=== PATIENT | male | born 1995 | race Two or more races ===

== ENCOUNTER 2020-12-30 04:51 | Emergency (ER) | payer SELFPAY ==
[2020-12-30] VITALS (25 sets, daily range): BP systolic 100–119; BP diastolic 52–74; PULSE 59–98; RESP 11–18; TEMP 36.8; O2SAT 97–100
--- NOTE | 2020-12-30 04:55 | ED.DIZZY ---
HPI - Dizziness General Chief Complaint: Dizziness <Filiberto Mendenhall MD - Last Filed: 01/05/21 13:19> Stated Complaint: numbness and weakness x 2-3 hours <Filiberto Mendenhall MD - Last Filed: 01/05/21 13:19> History of Present Illness HPI Narrative: Dizziness for the past 2-3 hours. Associated with rapid heart rate. He also reports feeling like he is not in control of his arms and legs. He is able to move them at will. Per EMS heart rate was initially very eleated. Improved in route. He does admit to drinking 2 beers this evening. He denies any other drug use. <Filiberto Mendenhall MD - Last Filed: 01/05/21 13:19> Related Data Allergies/Adverse Reactions: Allergies Allergy/AdvReac Type Severity Reaction Status Date / Time No Known Allergies Allergy Verified 12/30/20 06:44 <Filiberto Mendenhall MD - Last Filed: 01/05/21 13:19> Review of Systems Review of Systems: All systems reviewed & are unremarkable except as noted in HPI and below <Filiberto Mendenhall MD - Last Filed: 01/05/21 13:19> Constitutional: Constitutional: Reports fatigue, Denies fever(s) and Reports weakness <Filiberto Mendenhall MD - Last Filed: 01/05/21 13:19> Eyes: Eyes: Reports no additional eye complaints <Filiberto Mendenhall MD - Last Filed: 01/05/21 13:19> ENT: Reports dizziness <Filiberto Mendenhall MD - Last Filed: 01/05/21 13:19> Cardiovascular: Cardiovascular: Denies chest pain <Filiberto Mendenhall MD - Last Filed: 01/05/21 13:19> Respiratory: Respiratory: Denies dyspnea <Filiberto Mendenhall MD - Last Filed: 01/05/21 13:19> Gastrointestinal: Gastrointestinal: Reports no additional gastrointestinal complaints <Filiberto Mendenhall MD - Last Filed: 01/05/21 13:19> Genitourinary: Genitourinary: Reports no additional male genitourinary complaints <Filiberto Mendenhall MD - Last Filed: 01/05/21 13:19> Musculoskeletal: Musculoskeletal: Denies back pain <Filiberto Mendenhall MD - Last Filed: 01/05/21 13:19> Neurologic: Denies syncope and Reports weakness <Filiberto Mendenhall MD - Last Filed: 01/05/21 13:19> Psychiatric: Psychiatric: Denies anxiety <Filiberto Mendenhall MD - Last Filed: 01/05/21 13:19> [facility] Social History Social History: Social History (Updated 12/30/20 @ 04:58 by Filiberto Mendenhall MD) Alcohol intake: current Substance use: never <Filiberto Mendenhall MD - Last Filed: 01/05/21 13:19> Exam Const: General: healthy appearing, no acute distress and alert <Filiberto Mendenhall MD - Last Filed: 01/05/21 13:19> Orientation/consciousness: patient oriented x3 <Filiberto Mendenhall MD - Last Filed: 01/05/21 13:19> HENMT: Head: normal to inspection <Filiberto Mendenhall MD - Last Filed: 01/05/21 13:19> Neck: Neck: normal visual inspection and no lymphadenopathy <Filiberto Mendenhall MD - Last Filed: 01/05/21 13:19> Chest: Chest palpation & inspection: no tenderness <Filiberto Mendenhall MD - Last Filed: 01/05/21 13:19> Resp: Effort & Inspection: normal respiratory effort <Filiberto Mendenhall MD - Last Filed: 01/05/21 13:19> Auscultation: clear to auscultation bilaterally, no rales, no rhonchi and no wheezes <Filiberto Mendenhall MD - Last Filed: 01/05/21 13:19> Cardio: Jugular venous distension: no JVD <Filiberto Mendenhall MD - Last Filed: 01/05/21 13:19> Rate: regular rate <Filiberto Mendenhall MD - Last Filed: 01/05/21 13:19> Rhythm: regular rhythm <Filiberto Mendenhall MD - Last Filed: 01/05/21 13:19> Heart sounds: no murmurs <Filiberto Mendenhall MD - Last Filed: 01/05/21 13:19> GI: Inspection: non-distended <Filiberto Mendenhall MD - Last Filed: 01/05/21 13:19> GI Palp: Yes Soft to palpation and No Tenderness to palpation present (GI) <Filiberto Mendenhall MD - Last Filed: 01/05/21 13:19> Skin: General skin exam: normal color <Filiberto Mendenhall MD - Last Filed: 01/05/21 13:19> Neuro: General: patient oriented x3, moves all extremities, no focal motor deficits and CN'
[2020-12-30] MEDS: SODIUM CHLORIDE 0.9% IV 1,000 ML 999 ML IV CONT (05:10)
[2020-12-30 05:21] LABS: Basophils Percent Auto 0.6 % (0.2-1.2); Eosinophils Percent Auto 0.9 % (0-4.4); Hematocrit 41.6 % (42.0-52.0); Hemoglobin 14.8 g/dL (14.0-18.0); Immature Granulocyte Absolute 0.01 K/mm3 (0.00-0.031); Immature Granulocyte Percent A 0.3 % (0-0.5); Lymphocytes Absolute Auto 1.09 K/mm3 (0.9-3.2); Lymphocytes Percent Auto 31.7 % (18.3-44.2); Mean Corpuscular HGB Conc 35.6 g/dl (32-36); Mean Corpuscular Hemoglobin 31.3 pg (26-34); Mean Corpuscular Volume 87.9 fl (80-100); Mean Platelet Volume 10.5 fl (7.4-10.4); Monocytes Absolute Auto 0.3 K/mm3 (0.1-0.6); Monocytes Percent Auto 7.6 % (2.6-8.5); Neutrophils Percent Auto 58.9 % (45.5-73.1); Platelet Count Result 154 k/mm3 (150-375); Red Blood Count 4.73 M/mm3 (4.6-6.20); Red Cell Distribution Width 12.5 % (11.5-14.5); White Blood Count 3.4 K/mm3 (4.5-10.0)
[2020-12-30 05:31] LABS: Potassium 3.7 mmol/L (3.4-5.0)
[2020-12-30 05:37] LABS: Anion Gap 8 mmol/L (8-16); Blood Urea Nitrogen 5 mg/dL (9-20); Carbon Dioxide 29 mmol/L (22-30); Chloride 107 mmol/L (98-107); Estimated CRCL calculation 121 ml/min; Estimated Glomerular Filt Rate > 60; Glucose 95 mg/dL (75-110); Sodium 144 mmol/L (137-145)
[2020-12-30 07:21] LABS: Amphetamine Screen Urine Negative (Negative); Barbiturate Screen Urine Negative (Negative); Benzodiazepines Screen Urine Negative (Negative); Cannabinoid Screen Urine Positive (Negative); Cocaine Screen Urine Negative (Negative); Methadone Screen Urine Negative (Negative); Opiate Screen Urine Negative (Negative); Phencyclidine Screen Urine Negative (Negative)
--- NOTE | 2020-12-30 09:32 | ECG_ITS ---
Measurements Intervals Albert Rate: 87 P: 56 ID: 148 QRS: 60 QRSD: 110 T: 49 QT: 353 QTc: 426 Interpretive Statements SINUS RHYTHM ST ELEVATION IN DIFFUSE LEADS- PROBABLY EARLY REPOLARIZATION BORDERLINE ECG Electronically Signed On 12-30-2020 9:45:02 CDT by Bryan Weller D.O.
== END 2020-12-30 08:08 | disposition home or self-care (01) ==
PROVIDERS: Emergency Provider Emergency Medicine
DX: R42 Dizziness and giddiness (principal); R94.31 Abnormal electrocardiogram [ECG] [EKG]
CPT/HCPCS: 36415; 80048; 80307; 85025; 93005; 96360; 99283; J7030

== ENCOUNTER 2025-03-12 18:28 | Emergency (ER) | payer SELFPAY ==
--- NOTE | ~2025-03-12 | XR_ITS ---
XR hand RT min 3V Ordering provider: Allan St MD History: . lac X CUT HAND WITH GLASS UNABLE TO MOVE 3RD 4TH DIGIT . Comparison: None. FINDINGS: BONES: No acute fracture or dislocation. JOINT SPACES: Normal. SOFT TISSUES: Normal. IMPRESSION: No acute osseous abnormality right hand. Reviewed, dictated and finalized at location A.
--- OUTSIDE RECORDS SUMMARY | 2025-03-12 18:29 | XMS_ITS | Referral Summary ---
Author Organization [facility] Address [address] [place] [id number] Care Team Providers Care Career Development Facilitator Name Role Phone No, Physician Primary Care Provider [phone] Allergies No known active allergies Medications ibuprofen (ADVIL,MOTRIN) 800 mg tablet Take 1 tablet (800 mg total) by mouth 3 (three) times a day. 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 Gender Identity Not on file Sexual Orientation Not on file Last Filed Vital Signs Vital Sign Reading Time Taken Comments Blood Pressure 128/98 05/01/2018 6:12 PM CDT Pulse 90 05/01/2018 6:12 PM CDT Temperature 37.2 C (99 F) 05/01/2018 6:12 PM CDT Respiratory Rate 18 05/01/2018 6:12 PM CDT Oxygen Saturation 100% 05/01/2018 6:12 PM CDT Inhaled Oxygen Concentration - - Weight 90.7 kg (200 lb) 05/01/2018 6:12 PM CDT Height 182.9 cm (6') 05/01/2018 6:12 PM CDT Body Mass Index 27.12 05/01/2018 6:12 PM CDT Plan of Treatment Not on file Care Teams Career Development Facilitator Relationship Specialty Start Date End Date No, Physician PCP - General 04/10/17
--- OUTSIDE RECORDS SUMMARY | 2025-03-12 18:29 | XMS_ITS | Clinical Summary ---
Author Organization [facility] Address [address] [place] [address] Care Team Providers Care Crystalizer Operator Name Role Phone Unavailable Primary Care Provider Unavailabl e Source Comments [facility],non-owned Affiliates and Associated Physician Practices is amultiple site organization consisting of ambulatory clinics and hospital sitesin [place], [place], [place] and [place]. This disclosure is being madepursuant to the Care Everywhere program and may not contain all information available regarding this patient. Last updated 18.[facility] [employer] Allergies No known active allergies Medications * Be aware that medications may not be up to date on this document. Alwaysverify current medications with the patient. doxycycline hyclate (VIBRAMYCIN) 100 MG tabletIndication s:Acne Vulgaris Take 1 tablet by mouth 2 times daily Reasons: Common Acne 60 tablet 2 04/13/2019 Active Active Problems Problem Noted Date Diagnosed Date Acne vulgaris 04/13/2019 Acne scarring 04/13/2019 Social History Tobacco Use Types Packs/Day Years Used Date Smoking Tobacco: Every Day Smokeless Tobacco: Former Sex and Gender Information Value Date Recorded Sex Assigned at Not on file Legal Sex Male 2:18 PM CDT Gender Identity Not on file Sexual Orientation Not on file Plan of Treatment Health Maintenance Due Date Last Done Comments HIV SCREENING 2010 HEPATITIS C SCREENING 05/19/2013 DTAP/TDAP/TD VACCINES (1 - Tdap) 2014 HEPATITIS B VACCINE (1 of 3 - 19+ 3-dose series) 2014 COVID-19 VACCINE (2023-2 5 season) 2024 DEPRESSION SCREENING 09/30/2024 INFLUENZA VACCINE (Season Ended) 2025 ZOSTER VACCINE (1 of 2) 2045 HIB VACCINE Aged Out No longer eligi ble based on patient's age to complete this topic HPV VACCINE Aged Out No longer eligi ble based on patient's age to complete this topic MENINGOCOCCAL (Group B) VACC INE SHARED DECISION-MAKING Aged Out No longer eligibl e based on patient's age to complete this topic MENINGOCOCCAL GROUPS A/C/Y/W VACCINE Aged Out No longer eligible b ased on patient's age to complete this topic PNEUMOCOCCAL VACCINE Aged Out No long er eligible based on patient's age to complete this topic
--- OUTSIDE RECORDS SUMMARY | 2025-03-12 18:29 | XMS_ITS | Clinical Summary ---
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
[2025-03-12 18:33] VITALS: BP 149/85; PULSE 110; RESP 16; TEMP 36.8; O2SAT 100
--- NOTE | 2025-03-12 18:49 | ED_ITS ---
HPI - Wound/Laceration General Chief Complaint: Wound/Laceration Stated Complaint: Laceration to Hand Time Seen by Provider: 03/12/25 18:42 Source: patient Mode of arrival: ambulatory Limitations: no limitations History of Present Illness HPI narrative: This is a 29 year old RHD male that presents to the ER for laceration to the right hand. Reports he was holding a glass and slammed it on a table and it broke. Reports laceration to the palm. He is unable to bend his middle finger. Denies numbness. Related Data Allergies Allergy/AdvReac Type Severity Reaction Status Date / Time No Known Allergies Allergy Verified 12/30/20 06:44 Review of Systems Review of Systems: All systems reviewed & are unremarkable except as noted in HPI and below PMFSH Past Medical History Medical History (Updated 03/12/25 @ 21:07 by Caitlin Guallpa PA-C) No active medical problems Social History Social History (Updated 03/12/25 @ 18:53 by Caitlin Guallpa PA-C) Smoking status: Current every day smoker Tobacco type: e-cigarettes/vaping Alcohol intake: current Substance use: never Exam Narrative: GENERAL: Well-appearing, well-nourished, and in no acute distress. HEAD: Normocephalic, atraumatic. EYES: EOMI EXTREMITIES: Unable to flex the right third finger. Normal sensation. Normal capillary refill. 4cm linear laceration into subcutaneous tissue to the right hand palmar surface just below the 3rd and 4th fingers SKIN: Warm, dry, no rash. NEURO: No focal deficits. Alert and oriented x3. PSYCH: Normal mood and affect Course Course Emergency Course: Patient agrees with plan of care Consultations Consultation #1: Spoke with Dr. Hanley, hand surgery at [facility]. I will suture skin, provide patient with antibiotics, place in splint with fingers slightly flexed. He can follow up next week for further care. Date: 03/12/25 Vital Signs Vital signs: Vital Signs Temperature 98.2 F 03/12/25 18:33 Pulse Rate 110 H 03/12/25 18:33 Respiratory Rate 16 03/12/25 18:33 Blood Pressure 149/85 H 03/12/25 18:33 Pulse Oximetry 100 03/12/25 18:33 Temperature 98.2 F 03/12/25 18:33 Pulse Rate 110 H 03/12/25 18:33 Respiratory Rate 16 03/12/25 18:33 Blood Pressure 149/85 H 03/12/25 18:33 Pulse Oximetry 100 03/12/25 18:33 Procedures Laceration Laceration 1: Date: 03/12/25 Time: 21:17 Site: upper extremity Side (If applicable): right Size (cm): 4 Description: linear Depth: simple, single layer Local Anesthetic: lidocaine 1% and with epi Amount of anesthesia used (mL): 4 Pre-repair: wound explored and irrigated extensively ====== Skin Level ====== Skin layer closed with: nylon Size (cm): 4-0 Number of sutures: 7 Technique: simple, interrupted ====== Subcutaneous Layer ====== ====== Muscle Layer ====== ====== Tendon Layer ====== Orthopedic Splinting/Casting Injury #1: Splinting/Casting Date: 03/12/25 Splinting/Casting Time: 21:18 Side: right Upper Extremity Injury Location: hand Splint: customized in ED OCL: volar Pre-Procedure Neuro Vascular Exam: normal Post-Procedure Neuro Vascular Exam: normal MDM - Wound/Laceration MDM Narrative Medical decision making narrative: Patient presents the emergency department for laceration of the right hand sustained just prior to arrival. Patient's wound was irrigated. He was updated on tetanus vaccination. Patient is not able to flex the 3rd finger. I do not see any obvious tendon injury on exam. He is neurovascularly intact. Spoke with Dr. Hanley, hand surgery at [facility]. I will suture skin, provide patient with antibiotics, place in splint with fingers slightly flexed. He can follow up next week for further care. He was given warnings to return to the ER Differential Diagnosis Differential diagnosis: Likely laceration, abscess and avulsion of skin Critical Care Time Critical Care Time Critical Care Time: No Discharge Plan Discharge Clinical Impression: Laceration Patient Disposition: Home Condition: Stable Instructions: Laceration (ED) Additional Instructions: Return to the emergency department if you experience fever, redness and swelling of your arm, numbness, your arm feels cold, or any other symptoms that are concerning to you Wear splint. Ice and elevate. [id number] pain medication as needed. Prescribed pain medication as needed. Take oral antibiotics as prescribed Follow-up with [facility] hand surgery, call to make an appointment Applying for emergency medicaid: Begin by contacting your state's Medicaid office or the hospital where treatment is sought. Many hospitals can help with the application process during an emergency. You'll need to provide documentation to prove eligibility, such as: * Proof of income (e.g., pay stubs, tax returns). * Proof of residency (e.g., utility bills, lease agreements). * Identification, if available, though undocumented immigrants may not need to provide it. You do not need a Social Security Number (SSN) to apply for Emergency Medicaid. Complete the Emergency Medicaid application, which can often be initiated during or shortly after receiving treatment. Some states allow retroactive applications for emergency care received within a specific timeframe. The Medicaid office will review your application and supporting documents to determine eligibility based on state-specific requirements. Once approved, Emergency Medicaid will cover the costs of eligible emergency treatments received during the qualifying period of time. Hospitals and Medicaid offices are usually well-versed in guiding patients through this process to make sure that medical emergencies do not go untreated due to financial barriers. https://shala.[place].gov https://shala.[place].gov/ Patient Language: Vietnamese Prescriptions: New hydrocodone-acetaminophen 5-325 mg tablet 1 tablet PO Q6H PRN (Reason: pain) Qty: 20 0RF cephalexin 500 mg capsule 500 mg PO Q6H 7 Days Qty: 28 0RF Follow-up/Referrals: PHYSICIAN,CONVEYOR MECHANIC [Primary Care Provider] -
[2025-03-12] MEDS: LIDO 1%/EPINEPHRINE 1:100,000 20 ML VIAL 10 ML INFILTRATE (19:01)
[2025-03-12] MEDS: TETANUS,DIPHTHERIA,AC PERTUSSIS ADULT (0.5 ML) BOOSTRIX IM (20:16)
--- OUTSIDE RECORDS SUMMARY | 2025-03-12 20:18 | XMS_ITS | Clinical Summary ---
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
--- OUTSIDE RECORDS SUMMARY | 2025-03-12 20:18 | XMS_ITS | Referral Summary ---
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
--- OUTSIDE RECORDS SUMMARY | 2025-03-12 20:18 | XMS_ITS | Clinical Summary ---
Author Organization [facility] Address [address] [facility] [place] [address] Care Team Providers Care Counter Help Name Role Phone Unavailable Primary Care Provider Unavailabl e Source Comments [facility],non-owned Affiliates and Associated Physician Practices is amultiple site organization consisting of ambulatory clinics and hospital sitesin [place], [place], [place] and [place]. This disclosure is being madepursuant to the Care Everywhere program and may not contain all information available regarding this patient. Last updated 18.[facility] [employer] Allergies No known active allergies Medications * [...]
[2025-03-12 21:22] VITALS: BP 138/82; PULSE 87; RESP 15; O2SAT 100
== END 2025-03-12 21:24 | disposition home or self-care (01) ==
PROVIDERS: Emergency Provider Physician Assistant
DX: S61.411A Laceration without foreign body of right hand, initial encounter (principal); Z23 Encounter for immunization; F17.290 Nicotine dependence, other tobacco product, uncomplicated; W25.XXXA Contact with sharp glass, initial encounter
CPT/HCPCS: 12002; 73130; 90471; 90715; 99283; J2004

== ENCOUNTER 2025-03-17 01:06 | Day surgery (SDC) | payer SELFPAY ==
[2025-03-17] VITALS (8 sets, daily range): BP systolic 109–143; BP diastolic 66–91; PULSE 53–86; RESP 14–19; TEMP 36.1–37.6; O2SAT 95–99; BMI 27.8
--- OUTSIDE RECORDS SUMMARY | 2025-03-17 01:09 | XMS_ITS | Clinical Summary ---
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
--- OUTSIDE RECORDS SUMMARY | 2025-03-17 01:09 | XMS_ITS | Clinical Summary ---
Author Organization [facility] Address [address] [facility] [place] [address] Care Team Providers Care Associate Biological Sales Name Role Phone Unavailable Primary Care Provider Unavailabl e Source Comments [facility],non-owned Affiliates and Associated Physician Practices is amultiple site organization consisting of ambulatory clinics and hospital sitesin [place], [place], [place] and [place]. This disclosure is being madepursuant to the Care Everywhere program and may not contain all information available regarding this patient. Last updated 18.[facility] [employer] Allergies No known active allergies Medications * [...]
--- OUTSIDE RECORDS SUMMARY | 2025-03-17 01:09 | XMS_ITS | Referral Summary ---
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
--- NOTE | 2025-03-17 07:01 | P.HPUP_ITS ---
History and Physical Update Update Date/Time: 03/17/25 07:01 Patient seen and examined in pre-operative holding area. No interval change in medical history or symptoms. Patient recalls previous discussion of benefits and alternatives to procedure. Continues to desire to proceed with right middle finger wound exploration possible flexor tendon repair . Reviewed procedure, post-op expectations and risks including but not limited to bleeding, infection, injury to tendon/nerve/vessel, decreased hand function, stiffness, RSD, no change or worsening of symptoms, failure of repair. I discussed the possible use of assistants and their participation in the case. Patient stated under standing and signed the consent form wishing to proceed.
--- NOTE | 2025-03-17 07:01 | W.PM.PROC2 ---
Procedure Note - Detailed Date of Procedure 03/17/25 Pre-op Diagnosis injury to right hand Post-op Diagnosis Same (laceration right middle finger fds and fdp and right ring finger partial laceration fds) Procedure Performed exploration right hand penetrating wound and repair fds and fdp right middle finger and fds of right ring finger Surgeon Gail Silveira MD Ruling Machine Operator torin solares pa-c Anesthesia General Description of Procedure INFORMED CONSENT: The patient was seen and examined and marked in the pre-op area.? The patient signed the consent form. PROCEDURE IN DETAIL:The patient taken back to OR on the stretcher in supine position. Time out performed with anesthesia, surgeon and staff agreeing on patient's name site and surgery to be performed SCDs were placed on the lower extremities and inflated. A tourniquet was placed on {right} upper extremity and antibiotics given IV After anesthesia administered sedation I injected {8}cc 1%lido and 0.5% marcaine plain at the operative site and median nerve block previously placed sutures were removed from his right palm. The?{right upper extremity}?was prepped and draped in sterile fashion the??{right upper extremity} was? exsanguinated with Esmarch bandage and tourniquet inflated to 250mmHg A lead hand was utilized and Littler scissors were used to open the laceration. I irrigated blood clot from the wound. I identified a partial laceration and damage to the right ring finger A1 ramiro. I proceeded with completely releasing the right ring finger A1 ramiro to further evaluate the flexor tendons. I identified a 40% laceration to the flexor digitorum superficialis of the ring finger. I irrigated with normal saline and after freshening this wound edge this was closed with 5 0 Prolene suture. The tendon of the right ring finger was now gliding smoothly in its sheath and did not appear to be getting hung up on this partial laceration flap. Neurovascular bundles were identified and protected throughout the procedure and appeared intact to the middle and ring fingers. I next took my attention to the right middle finger where I was able to retrieve the proximal and distal ends of the completely lacerated flexor digitorum superficialis and flexor digitorum profundus tendons. I released the A1 ramiro completely ear to improve my exposure and extended the incision distally in Héctor fashion to the MP joint flexion crease. I took my attention 1st to the FDP repair. Using a tongue depressor and fresh 15 I freshened the edges of the tendon by 1 mm. I then proceeded with using a modified Goodman repair using 3-0 FiberWire suture with the knot buried in the tendon ends. I placed a 2nd figure of 8 3-0 FiberWire in the center of this FDP repair also bearing the knot. 5-0 Prolene was used for epitendinous suture. There was no gapping of the tendon noted on finger range of motion. There was slight restriction at the attempted full extension of the digit and I sharply released the proximal 25% of the A2 ramiro. This improved extension ability. Next I proceeded with the FDS repair in a similar fashion. Freshened the tendon edges with 15 blade scalpel. I repaired the tendon with 3-0 FiberWire suture with a modified Goodman and then another 3-0 FiberWire was used to achieve 4 core strands of closure. 5-0 Prolene was used for epitendinous suture. There was no gapping of the repairs with finger range of motion and appeared to be gliding smoothly. Irrigated with normal saline I closed skin with 4-0 chromic. A dressing of xeroform, 4x4, alysha, and an extension block splint in safe positiong was applied secured with an сергей bandage after the tourniquet was let down noting the hand was warm and well perfused. The patient was then awaken from anesthesia and transferred to the recovery room in stable condition.? Complications - none EBL- 4cc Disposition - home in stable condition Torin Solares PA-C was essential for positioning, retraction, closure and dressing placement [facility] Billing Surgery - Charge Forward: Surgery Billing ([id number], same for torin adding modifier )
--- NOTE | 2025-03-17 08:24 | P.PNAN_ITS ---
Anes - Initial Pre Proc Eval Procedure: Operation Date: 03/17/25 14:00 Proposed Procedures p Right Middle Finger Exploration, Possible Tendon Repair - Gail Silveira MD Date/Time: 03/17/25 08:24 Surgeon: Gail Silveira MD Pre Op Diagnosis: injury to right hand Patient Data Age: 29 Gender: M Height: Weight: Allergies Allergy/AdvReac Type Severity Reaction Status Date / Time No Known Allergies Allergy Verified 03/17/25 12:50 Home Medications ?Medication ?Instructions ?Recorded ?Confirmed ?Type cephalexin 500 mg capsule 500 mg PO Q6H 1 week #28 caps 03/12/25 03/17/25 Rx hydrocodone 5 mg-acetaminophen 325 1 tablet PO Q6H PRN pain #20 tabs 03/12/25 03/17/25 Rx mg tablet Patient hx anesthesia problems: none Family hx anesthesia problems: none Results Review: All pre-operative results and documents have been reviewed as part of the pre- operative evaluation. [facility], [facility] Past Medical History Medical History (Updated 03/16/25 @ 09:09 by Gail Silveira MD) No active medical problems Social History Social History (Updated 03/12/25 @ 18:53 by Caitlin Guallpa PA-C) Years smoked: 4 Smoking status: Former smoker Tobacco type: cigarettes and e-cigarettes/vaping Additional smoking assessment comments: Vapes now. Alcohol intake: current Substance use: never Substance use type: marijuana Other substance usage details: Every other day. Living arrangements: alone Spiritual care concerns: No Anes - Eval Final PreProcedure Day of Procedure 03/17/25 08:24 Patient weight: overweight Heart: regular rate and rhythm Lungs: clear to auscultation Airway: Mallampati scale class II Neurological: alert and oriented Last oral intake: >/= 8 hours ASA classification: II Emergent: no Anesthetic plan: proceed Anesthesia type and monitoring: general LMA and standard monitoring Results Review: All pre-operative results and documents have been reviewed as part of the pre- operative evaluation. Informed Consent: The patient's anesthetic plan and its attendant risks and benefits were discussed with the patient/family/POA. Questions were solicited and answers provided to the satisfaction of the patient/family/POA.
--- NOTE | 2025-03-17 08:38 | PC.NURSE ---
Report to the Outpatient Waiting Room, entrance under the green pavilion located off [facility], at time _1200_ on date _[id number]_. Planned Procedure Time: _2pm_.? Time changes happen often and if your time is changed the preop area will call you the afternoon before. - You and your visitor will be asked to self-screen and do not enter if you have any COVID symptoms. Please call surgeon if you need to reschedule. - A mask is optional within the hospital at this time. - No food or drink from now until time of surgery and no smoking or vaping, or chewing tobacco (or any form of nicotine). No chewing gum, candy or mints. Take only the following medications with a SIP of water on the morning of surgery: ___Cephalexin and if needed Hydrocodone. DO NOT STOP ANY OF YOUR OTHER PRESCRIPTION MEDICATIONS PRIOR TO SURGERY EXCEPT THE FOLLOWING Hold all vitamins and supplements for 3 days per anesthesiologist. Medications to discontinue per physician Date to take last dose Please no make-up, nail frisian, hairspray, perfume, deodorant, or body powder the day of surgery.? No jewelry (including any body piercings) or valuables the day of surgery, leave them at home.? Please take a shower or bath the night before, or the morning of, surgery with an antibacterial soap.? Wear comfortable, loose fitting clothing.? - Jewelry must be removed prior to entering the operating room.? Rings and piercings that are not removed may be cut off. - The hospital will not accept responsibility for valuables.? - Please leave all valuables, including medications, at home the day of surgery. If you are going home after surgery, a licensed concrete truck driver must drive you home.? - NO public transportation without another adult if you receive anesthesia. - We recommend that an adult stay with you for 24 hours following discharge. - We also recommend that you do not drive, make important decision, drink alcoholic beverages, or take any drugs that were not prescribed by your health care provider for at least 24 hours after your discharge time. Follow any additional instructions given to you from your surgeon. Telephone instructions given to __[place]___and asked if any additional questions and then verbalized understanding. Patient advised to call surgeon office or pre surgery nurse liaison [phone] if any additional questions.
[2025-03-17] MEDS: LACTATED RINGERS 1,000 ML 30 ML IV CONT (12:30)
[2025-03-17] MEDS: LIDO 1%/EPINEPHRINE 1:100,000 20 ML VIAL 10 ML INFILTRATE (13:45)
[2025-03-17] MEDS: LIDOCAINE 1% LOCAL INJ 10 ML VIAL INFILTRATE (13:45)
[2025-03-17] MEDS: BUPivacaine HCL 0.5% 10 ML AMP INFILTRATE (13:45)
[2025-03-17] MEDS: oxyCODONE HCL (*CRX) 5 MG TAB IR PO (16:16)
== END 2025-03-17 17:02 | disposition home or self-care (01) ==
PROVIDERS: Visit Provider Plastic Surgery
PROC: (CPT 26350; principal; 2025-03-17 14:00)
DX: S66.891A Other injury of other specified muscles, fascia and tendons at wrist and hand level, right hand, initial encounter (principal); W25.XXXA Contact with sharp glass, initial encounter; F17.290 Nicotine dependence, other tobacco product, uncomplicated; Z79.891 Long term (current) use of opiate analgesic
CPT/HCPCS: 26350 ×3; A9270; J1100; J2003; J2004; J2250; J2405; J2704; J3010; J7120